=== PATIENT | female | born 1970 | race Caucasian/White ===

== ENCOUNTER 2022-11-20 12:01 | Emergency (ER) | payer SELFPAY ==
[~2022-11-20] VITALS: Ht 167.6 cm; Wt 73.0 kg
[2022-11-20] MEDS ORDERED: ACETAMINOPHEN 325MG TABLET PO ONE (12:45)
[2022-11-20 16:37] VITALS: BP 176/95
[2022-11-20] MEDS ORDERED: KETOROLAC 60MG/2ML VIAL IM ONE (16:45)
[2022-11-20] MEDS ORDERED: ACET-2708 MT (17:23)
== END 2022-11-20 17:53 | disposition home or self-care (01) ==
LOC: ER 12:10
DX: S00.03XA Contusion of scalp, initial encounter (principal); V49.9XXA Car occupant (driver) (passenger) injured in unspecified traffic accident, initial encounter; Y93.89 Activity, other specified; Y92.89 Other specified places as the place of occurrence of the external cause; Y99.8 Other external cause status
CPT/HCPCS: 70450; 96372; 99285; J1885; Z7610